=== PATIENT | female | born 1960 | race Caucasian/White ===

== ENCOUNTER 2017-02-07 17:47 | Observation (INO) | payer OTHER ==
[~2017-02-07] VITALS: Ht 162.6 cm; Wt 92.2 kg
[2017-02-07] MEDS ORDERED: ONDANSETRON INJ 2 MG/ML 2 ML VIAL IV STA (18:09)
[2017-02-07] MEDS ORDERED: ASPIRIN 81 MG CHEW PO STA (18:09)
[2017-02-07] MEDS ORDERED: SODIUM CHLORIDE 0.9% 1000ML 1,000 ML IV STA (18:09)
--- NOTE | 2017-02-07 18:20 | DIAGNOSTIC IMAGING REPORT ---
CHEST ONE VIEW PORTABLE HISTORY: 56 years-old Female Chest Pain acute atypical chest pain with nausea COMPARISON: None available TECHNIQUE: Portable AP view of the chest FINDINGS: Cardiomediastinal and hilar silhouettes are within normal limits. No pneumothorax, pleural effusion, focal airspace consolidation or overt pulmonary edema. Bones of the chest are grossly intact. IMPRESSION: No acute cardiopulmonary process. The above report was generated using voice recognition software. It may contain grammatical, syntax or spelling errors. Electronically signed by: Charbel Giron M.D. 02/07/2017 6:18 PM Dictated Date/Time: 02/07/2017 6:18 PM
[2017-02-07] MEDS ORDERED: VENL75CA PO (18:25)
[2017-02-07] MEDS ORDERED: CETI10TA84 PO (18:25)
[2017-02-07 18:33] LABS: BASO % 0.4 %; BASO ABS # 0.04 K/uL (0-0.2); COMPLETE YES; EOS % 1.9 %; HEMATOCRIT 41.8 % (37-47); IG% 0.2 %; LYMPH % 39.6 %; LYMPH ABS # 4.07 K/uL (1.2-3.4); MEAN CELL VOLUME 92.3 fL (80-100); MEAN CORPUSCULAR HEMOGLOBIN 30.7 pg (25-34); MEAN CORPUSCULAR HGB CONC 33.3 g/dl (32-36); MEAN PLATELET VOLUME 11.4 fL (7.4-10.4); MONO % 6.7 %; NEUT % 51.2 %; PLATELET COUNT 258 K/uL (130-400); RED BLOOD COUNT 4.53 M/uL (4.2-5.4); WHITE BLOOD COUNT 10.27 K/uL (4.8-10.8)
[2017-02-07 18:49] LABS: BLOOD UREA NITROGEN 16 mg/dl (7-18); BUN/CREATININE RATIO 23.6 (10-20); CALCIUM 9.5 mg/dl (8.5-10.1); CARBON DIOXIDE 26 mmol/L (21-32); CHLORIDE 106 mmol/L (98-107); CREATININE 0.67 mg/dl (0.60-1.20); GLUCOSE 110 mg/dl (70-99); POTASSIUM 3.5 mmol/L (3.5-5.1); SODIUM 136 mmol/L (136-145)
[2017-02-07 18:54] LABS: CKMB/CK RATIO 0.9 (0-3.0)
[2017-02-07 19:56] LABS: ALKALINE PHOSPHATASE 86 U/L (45-117); ALT/SGPT 26 U/L (12-78); AST/SGOT 17 U/L (15-37); MAGNESIUM 2.3 mg/dl (1.8-2.4)
[2017-02-07] MEDS ORDERED: OPTIRAY 320 IV PRN (20:15)
--- NOTE | 2017-02-07 20:17 | DIAGNOSTIC IMAGING REPORT ---
HEAD WITHOUT CONTRAST (CT) CLINICAL HISTORY: 56 years-old Female with ordaz, RUE numbness. Acute headache TECHNIQUE: Multiple axial CT images of the head were obtained without contrast. A dose lowering technique was utilized adhering to the principles of ALARA. CT DOSE: 537.48 mGy.cm COMPARISON: None. FINDINGS: No acute intracranial hemorrhage, midline shift, intracranial mass, hydrocephalus, territorial ischemia or abnormal extra-axial collection. Calcifications of the falx cerebri and tentorium noted in addition to dural calcifications of the middle cranial fossa. Ill-defined areas of low-attenuation within the periventricular white matter suggests minimal chronic microvascular ischemic changes. The calvarium is intact. The paranasal sinuses, mastoid air cells, and middle ear cavities are clear. IMPRESSION: No acute intracranial abnormality. The above report was generated using voice recognition software. It may contain grammatical, syntax or spelling errors. Electronically signed by: Charbel Giron M.D. 02/07/2017 8:16 PM Dictated Date/Time: 02/07/2017 8:12 PM
--- NOTE | 2017-02-07 20:25 | DIAGNOSTIC IMAGING REPORT ---
(CHEST FOR PE) ANGIO WITH CT DOSE: 391.70 mGy.cm HISTORY: 56 years-old Female presents with acute chest pain and shortness of breath TECHNIQUE: Multiple CTA images of the chest were obtained after the intravenous administration of 91 ml Optiray 320. Coronal and sagittal MIPS were obtained from the axial data set and were submitted for review. A dose lowering technique was utilized adhering to the principles of ALARA. COMPARISON: Chest radiograph 02/07/2017. FINDINGS: CTA: Mild multichamber cardiac enlargement. Thoracic aorta is normal in course and caliber without dissection or aneurysm. The imaged great vessels appear to be patent. The pulmonary arterial tree is opacified to level of the segmental branches. The subsegmental branches are not well-seen secondary to contrast bolus timing. No focal filling defects identified to suggest pulmonary thromboembolic disease. CT CHEST: Thyroid appears mildly atrophic. No pathologically enlarged lymph nodes of the chest are identified. There is no pneumothorax or pleural effusion. Mild dependent bibasilar atelectasis. Ovoid circumscribed solid nodule of the lingula measuring 4 mm as seen on image 120 of series 4. Central airways are patent. No lobar airspace consolidations identified. No acute amount of the imaged upper abdomen. There is an ovoid 1.7 x 0.9 cm lesion of the left adrenal gland which is partially imaged demonstrating macroscopic fat. Soft tissues are unremarkable. Bones appear intact. IMPRESSION: 1. No acute intrathoracic abnormality identified. No acute aortic pathology or evidence of pulmonary thromboembolic disease. 2. 4 mm solid nodule of the lingula is likely benign. 3. Partially imaged 1.7 cm lesion of the left adrenal gland demonstrating macroscopic fat attenuation suggests adrenal myolipoma. Please refer to below summary of Fleischner criteria recommendations for follow-up of incidental CT nodules (Radha Her, Guidelines for management of small pulmonary nodules detected on CT scans: A statement from the Fleischner Society, Radiology 237: [phone].) SOLID NODULES Solitary nodule size: <6 mm * Low risk patients: no follow-up needed * high risk patients: optional CT at 12 months Note: newly detected indeterminate nodule in persons 35 years of age or older. * Low risk patients: minimal or absent history of smoking and/or other known risk factors * high risk patients: history of smoking or of other known risk factors (e.g. first degree relative with lung cancer, or exposure to asbestos, radon, uranium) * if a nodule up to 8 mm is partly solid or is ground glass further follow-up is required after 24 months to exclude possible slow growing adenocarcinoma (CHICHI) The above report was generated using voice recognition software. It may contain grammatical, syntax or spelling errors. Electronically signed by: Charbel Giron M.D. 02/07/2017 8:24 PM Dictated Date/Time: 02/07/2017 8:16 PM
[2017-02-07] MEDS ORDERED: NITROGLYCERIN 0.4 MG SL PER TAB CHARGE SL PRN (21:00)
[2017-02-07] MEDS ORDERED: TRAMADOL HCL 50 MG TAB PO PRN (21:00)
[2017-02-07] MEDS ORDERED: ENOXAPARIN 40 MG/0.4 ML SYR SC SCH (21:00)
[2017-02-07] MEDS ORDERED: LORAZEPAM 2 MG/ML 1 ML VIAL IV PRN (21:00)
[2017-02-07] MEDS ORDERED: PROCHLORPERAZINE INJ 5 MG in SYRINGE 4 ML IV PRN (21:00)
[2017-02-07] MEDS ORDERED: ACETAMINOPHEN 325 MG TAB PO PRN (21:00)
[2017-02-07] MEDS ORDERED: PHARMACIST DISCHARGE MED REC CONSULT PRN (21:00)
[2017-02-07] MEDS ORDERED: IV FLUIDS COMPLETED PRN (21:15)
[2017-02-07 21:43] VITALS: BP 152/94; PULSE 56; TEMP 36.8; O2SAT 100; Ht 162.6 cm; Wt 92.2 kg
[2017-02-07] MEDS ORDERED: NSS + 20MEQ KCL 1000ML 1,000 ML IV ONE (22:00)
--- NOTE | 2017-02-07 22:12 | HISTORY & PHYSICAL EXAMINATION ---
DATE OF ADMISSION: 02/07/2017 PRIMARY CARE PHYSICIAN: Dr. Diana Burt. CHIEF COMPLAINT: Chest tightness. HISTORY OF PRESENT ILLNESS: History obtained from patient and records. Medical history significant for borderline hypertension, hyperlipidemia, skin cancer status post surgery, mood disorder, past tobacco abuse. Patient was traveling from [place], [place] with her daughter by a car to [place] today. A few hours on the road they had a flat tire, had to change. Patient had to get in the car because she was not feeling well, had central achy chest tightness with some shortness of breath. No cough. En route to the [facility] ER, patient noted right upper extremity numbness. No neck pain, currently improving. Transient headache symptoms as well. As per patient, she would have that right-sided numbness whenever her blood pressure is high. Blood pressure at some point at the ER was 157/111 as per patient which is high for her. Patient given aspirin in the ER. Patient currently comfortable. Improving right upper extremity numbness symptoms. MEDICAL HISTORY: As above. MRI a few months ago for vertigo. SURGERIES: Tonsillectomy, hysterectomy, appendectomy, skin cancer surgery. HOME MEDICATIONS: Venlafaxine. ALLERGIES: No known drug allergies. FAMILY HISTORY: Family history of heart disease and stroke. PERSONAL AND SOCIAL HISTORY: Past tobacco abuse. NO chronic intake of alcoholic beverages. Homemaker. REVIEW OF SYSTEMS: As per HPI, all 10 systems reviewed, all other ROS negative. PHYSICAL EXAMINATION: VITAL SIGNS: Blood pressure noted to be 140/90, pulse rate 90, RR 18, temperature 36.3, sats 94 on room air. GENERAL: Noted to be anxious, obese, no respiratory distress, looks younger for stated age. SKIN: Normal color. Warm. HEENT: Manele palpebral conjuctivae. No ptosis. Dry buccal mucosa. NECK: Supple. No tenderness. CHEST: Clear to auscultate. No tenderness. HEART: Regular rate and rhythm. No murmur. ABDOMEN: Soft, nontender. EXTREMITIES: No edema, no tenderness. No gross deformities. NEUROLOGIC: Coherent. No gross focality except for subjective numbness on the right extremity. LABORATORY DATA: Hemoglobin 13.9, hematocrit 41.8, white blood cell count 10.27, platelets noted to be 258. Sodium 136, potassium 3.5, chloride 106, CO2 26, BUN 16, creatinine 0.6, glucose [address] . T[address] normal Normal CT head, no acute pathology. CTA lingular nodule, no PE. EKG as per my interpretation, rate 60, normal sinus rhythm, Q-waves inferior leads. ASSESSMENT AND PLAN: 1. Right upper extremity numbness secondary to transient BP elevation ? TIA Currently improving 2. chest discomfort secondary to anxiety, transient BP elevation 3. borderline hypertension, hyperlipidemia as per patient 4. skin cancer status post surgery 5. past tobacco use. 6. SPN Observation PCU, neuro checks ASA for now for stroke prevention until stroke ruled out. Patient refusing MRI of brain despite being counseled about limits of CT imaging and potential for a bigger stroke if RUE numbness symptoms are indeed from a true CVA missed by an incomplete stroke workup. Follow a.m. troponin, 2D echo RE cp Patient requesting to be discharged in a.m. if rest of workup she consents to is unremarkable. Follow-up outpatient CT chest surveillance study for SPN DVT prophylaxis, Lovenox subQ. Full code. MTDD
--- NOTE | 2017-02-07 23:27 | EMERGENCY ROOM VISIT NOTE ---
History Report prepared by Gerri: Yas Dumont Under the Supervision of: Dr. Ector Hale D.O. First contact with patient: 18:04 Chief Complaint: CARDIAC ASSESSMENT Stated Complaint: NAUSEA, DISORIENTATION, SWEATING History of Present Illness The patient is a 56 year old female who presents to the Emergency Room with complaints of a cardiac assessment today. The patient states that she was having a chill then had chest tightness, shortness of breath, nausea, and diaphoresis. She reports that her chest tightness is gone right now, but is still feeling nauseous. The patient also reports becoming disoriented and could not recall the conversation that she was having with her . The patient reports a history of hypertension and hyperlipidemia, but denies a history of diabetes and heart disease. She reports a family history of heart attacks. The patient denies a history of blood clots and states that she is not on blood thinners. The patient denies recent travel and surgeries. She states that she used to be a smoker years ago. Source of History: patient Onset: today Position: chest Quality: other (cardiac assessment ) Timing: intermittent Associated Symptoms: + chills, + diaphoresis, + chest pain (chest tightness) , + SOB, + nausea Note: additional symptoms: became disoriented, could not recall conversations Review of Systems See HPI for pertinent positives & negatives. A total of 10 systems reviewed and were otherwise negative. Past Medical & Surgical Medical Problems: (1) Chest pain (2) Chest tightness (3) Hyperlipidemia (4) Hypertension (5) Numbness and tingling of right upper extremity Family History FH: heart attack Social History Smoking Status: Former Smoker Marital Status: Current/Historical Medications Scheduled Cetirizine (Zyrtec), 10 MG PO DAILY Venlafaxine Hcl (Effexor Xr), 75 MG PO DAILY Allergies Coded Allergies: No Known Allergies (Unverified , 02/07/17) Physical Exam Vital Signs Date Time Temp Pulse Resp B/P (MAP) Pulse Ox O2 Delivery O2 Flow Rate FiO2 02/07/17 18:13 94 Room Air 02/07/17 18:08 72 02/07/17 17:54 36.3 71 18 149/87 94 Room Air Physical Exam GENERAL: Sitting up in bed, alert, anxious appearing, well nourished, no distress, non-toxic, talking in full sentences EYE EXAM: normal conjunctiva. OROPHARYNX: no exudate, no erythema, lips, buccal mucosa, and tongue normal and mucous membranes are moist NECK: supple, no nuchal rigidity, no adenopathy, non-tender LUNGS: Clear to auscultation. Normal chest wall mechanics HEART: no murmurs, S1 normal and S2 normal ABDOMEN: abdomen soft, non-tender, normo-active bowel sounds, no masses, no rebound or guarding. BACK: Back is symmetrical on inspection and there is no deformity, no midline tenderness, no CVA tenderness. SKIN: no rashes and no bruising UPPER EXTREMITIES: upper extremities are grossly normal. Radial pulses are equal bilaterally. LOWER EXTREMITIES: No pitting edema.Calves are equal bilaterally. NEURO EXAM: Normal sensorium, cranial nerves II-XII grossly intact, normal speech, no gross weakness of arms, no gross weakness of legs. Medical Decision & Procedures ER Provider Diagnostic Interpretation: Radiology results as stated below per my review and the radiologist's interpretation: CHEST ONE VIEW PORTABLE HISTORY: 56 years-old Female Chest Pain acute atypical chest pain with nausea COMPARISON: None available TECHNIQUE: Portable AP view of the chest FINDINGS: Cardiomediastinal and hilar silhouettes are within normal limits. No pneumothorax, pleural effusion, focal airspace consolidation or overt pulmonary edema. Bones of the chest are grossly intact. IMPRESSION: No acute cardiopulmonary process. The above report was generated using voice recognition software. It may contain grammatical, syntax or spelling errors. Electronically signed by: hCarbel Giron M.D. 02/07/2017 6:18 PM Dictated Date/Time: 02/07/2017 6:18 PM Laboratory Results 02/07/17 18:09 Red Blood Count 4.53, Mean Corpuscular Volume 92.3, Mean Corpuscular Hemoglobin 30.7, Mean Corpuscular Hemoglobin Concent 33.3, Mean Platelet Volume 11.4, Neutrophils (%) (Auto) 51.2, Lymphocytes (%) (Auto) 39.6, Monocytes (%) (Auto) 6.7, Eosinophils (%) (Auto) 1.9, Basophils (%) (Auto) 0.4, Neutrophils # (Auto) 5.26, Lymphocytes # (Auto) 4.07, Monocytes # (Auto) 0.69, Eosinophils # (Auto) 0.19, Basophils # (Auto) 0.04 02/07/17 18:09 Test 02/07/17 18:09 02/07/17 20:50 White Blood Count 10.27 K/uL (4.8-10.8) Red Blood Count 4.53 M/uL (4.2-5.4) Hemoglobin 13.9 g/dL (12.0-16.0) Hematocrit 41.8 % (37-47) Mean Corpuscular Volume 92.3 fL (80-100) Mean Corpuscular Hemoglobin 30.7 pg (25-34) Mean Corpuscular Hemoglobin Concent 33.3 g/dl (32-36) Platelet Count 258 K/uL (130-400) Mean Platelet Volume 11.4 fL (7.4-10.4) Neutrophils (%) (Auto) 51.2 % Lymphocytes (%) (Auto) 39.6 % Monocytes (%) (Auto) 6.7 % Eosinophils (%) (Auto) 1.9 % Basophils (%) (Auto) 0.4 % Neutrophils # (Auto) 5.26 K/uL (1.4-6.5) Lymphocytes # (Auto) 4.07 K/uL (1.2-3.4) Monocytes # (Auto) 0.69 K/uL (0.11-0.59) Eosinophils # (Auto) 0.19 K/uL (0-0.5) Basophils # (Auto) 0.04 K/uL (0-0.2) RDW Standard Deviation 48.2 fL (36.4-46.3) RDW Coefficient of Variation 14.3 % (11.5-14.5) Immature Granulocyte % (Auto) 0.2 % Immature Granulocyte # (Auto) 0.02 K/uL (0.00-0.02) Activated Partial Thromboplast Time 26.0 SECONDS (21.0-31.0) Partial Thromboplastin Ratio 1.0 Anion Gap 4.0 mmol/L (3-11) Est Creatinine Clear Calc Drug Dose 100.4 ml/min Estimated GFR () 112.3 Estimated GFR (Non- 96.9 BUN/Creatinine Ratio 23.6 (10-20) Calcium Level 9.5 mg/dl (8.5-10.1) Magnesium Level 2.3 mg/dl (1.8-2.4) Total Bilirubin 0.2 mg/dl (0.2-1) Direct Bilirubin < 0.1 mg/dl (0-0.2) Aspartate Amino Transf (AST/SGOT) 17 U/L (15-37) Alanine Aminotransferase (ALT/SGPT) 26 U/L (12-78) Alkaline Phosphatase 86 U/L (45-117) Total Creatine Kinase 149 U/L (26-192) Creatine Kinase MB 1.3 ng/ml (0.5-3.6) Creatine Kinase MB Ratio 0.9 (0-3.0) Total Protein 8.0 gm/dl (6.4-8.2) Albumin 4.1 gm/dl (3.4-5.0) Lipase 182 U/L (73-393) Troponin I < 0.015 ng/ml (0-0.045) Laboratory results per my review. Medications Administered Medications (Trade) Dose Ordered Sig/Bianca Route Start Time Stop Time Status Last Admin Dose Admin Sodium Chloride 1,000 ml @ 999 mls/hr Q1H1M STAT IV 02/07/17 18:09 02/07/17 19:09 DC 02/07/17 18:33 999 MLS/HR Ondansetron HCl (Zofran Inj) 4 mg NOW STAT IV 02/07/17 18:09 02/07/17 18:10 DC 02/07/17 18:33 4 MG Aspirin (Aspirin Chew) 324 mg NOW STAT PO 02/07/17 18:09 02/07/17 18:10 DC 02/07/17 18:33 324 MG ECG Indication: chest pain Rate (beats per minute): 62 Rhythm: sinus rhythm Findings: ST elevation (Lateral), other ED Course ED COURSE: Vital signs were reviewed and showed normal vitals. The patients medical record was reviewed The above diagnostic studies were performed and reviewed. ED treatments and interventions as stated above. 1805: The patient was evaluated in room B2. A complete history and physical examination was performed. 1808: Ordered Aspirin 324 mg PO, Zofran Inj 4 mg IV, Sodium Chloride 1,000 ml @ 999 mls/hr IV. 1924: I reviewed the patient's case with Dr. Norman. Dr. Norman states that he does not believe the patient's chest pain is ischemic, but believes it is more consistent with endocarditis. Dr. Norman recommends an echocardiogram in the morning. 1926: Upon reevaluation, the patient is resting. I discussed the findings and the treatment plan with the patient. She expresses agreement and understanding. [facility] She will be evaluated for further management. Medical Decision Differential diagnoses includes but is not limited to acute coronary syndrome, myocardial infarction, pericarditis, pulmonary embolus, aortic dissection, pneumonia, pneumothorax, musculoskeletal, shingles, esophageal. Patient is a 56-year-old female that presents to ER for chest pain and shortness of breath and nausea associated with diaphoresis. History of hypertension and hyperlipidemia. Previous history of family MRIs and a previous smoker. Her chest pain upon presentation is completely resolved. I did give her aspirin. Initial EKG was nondiagnostic. I did repeat this EKG as to the faint elevations. On repeat it appears that the ST segment elevations is diffuse and has worsened. Patient is completely asymptomatic at this time. Consult to cardiology. They review the EKGs. My initial question was could this be a pericarditis provided history of present illness and exam is not consistent. Do not feel this is ischemic as she is completely pain free without symptoms. Cardiology agrees with admission and echo in the a.m. No need for emergent cath. Patient was updated at bedside admitted to internal medicine. Medication Reconcilliation Current Medication List: was personally reviewed by me Blood Pressure Screening Patient's blood pressure: Normal blood pressure Consults Time Called: 1899 Consulting Physician: Dr. Norman- Cardiovascular disease Returned Call: 1924 I reviewed the patient's case with Dr. Norman. Dr. Norman states that he does not believe the patient's chest pain is ischemic, but believes it is more consistent with endocarditis. Dr. Norman recommends an echocardiogram in the morning. Additional Consults: Time Called: 1901 Consulted Physician: Dr. Bowman-[facility] Returned Call: 1926 Additional Comments: I reviewed the patient's case with Dr. Bowman. He will evaluate the patient for further management. Impression Primary Impression: Chest pain Additional Impression: Acute electrocardiogram changes Scribe Attestation The scribe's documentation has been prepared under my direction and personally reviewed by me in its entirety. I confirm that the note above accurately reflects all work, treatment, procedures, and medical decision making performed by me. Departure Information Dispostion Being Evaluated By Hospitalist Referrals Diana Burt D.O. (PCP) Patient Instructions My [facility] Problem Qualifiers Primary Impression: Chest pain Chest pain type: unspecified Qualified Codes: R07.9 - Chest pain, unspecified
[2017-02-08 00:20] VITALS: BP 139/87; PULSE 71; TEMP 36.5; O2SAT 98
[2017-02-08 03:14] VITALS: BP 143/72; PULSE 72; TEMP 36.7; O2SAT 96
[2017-02-08] MEDS ORDERED: INFLUENZA VIRUS QUAD VACCINE 0.5 ML SYR IM. ONE (04:00)
[2017-02-08] MEDS ORDERED: INFLUENZA ADMINISTRATION CHARGE ONE (04:00)
[2017-02-08 06:11] LABS: BASO % 0.4 %; BASO ABS # 0.04 K/uL (0-0.2); COMPLETE YES; EOS % 1.4 %; HEMATOCRIT 37.8 % (37-47); IG% 0.3 %; LYMPH % 46.4 %; LYMPH ABS # 4.36 K/uL (1.2-3.4); MEAN CELL VOLUME 93.3 fL (80-100); MEAN CORPUSCULAR HEMOGLOBIN 30.4 pg (25-34); MEAN CORPUSCULAR HGB CONC 32.5 g/dl (32-36); MEAN PLATELET VOLUME 11.5 fL (7.4-10.4); MONO % 7.1 %; NEUT % 44.4 %; PLATELET COUNT 233 K/uL (130-400); RED BLOOD COUNT 4.05 M/uL (4.2-5.4); WHITE BLOOD COUNT 9.39 K/uL (4.8-10.8)
[2017-02-08 06:38] LABS: CHOLESTEROL 156 mg/dl (0-200); CHOLESTEROL/HDL RATIO 2.5; HDL CHOLESTEROL 63 mg/dl; LDL CHOLESTEROL CALCULATED 60 mg/dl; TRIGLYCERIDES 165 mg/dl (0-150); VERY LOW DENSITY LIPOPROT CALC 33 mg/dl
[2017-02-08 08:00] VITALS: BP 107/68; PULSE 70; TEMP 36.6; O2SAT 96
[2017-02-08] MEDS ORDERED: CETIRIZINE HCL 10 MG TAB PO SCH (09:00)
[2017-02-08] MEDS ORDERED: ASPIRIN 325 MG ECTAB PO SCH (09:00)
[2017-02-08] MEDS ORDERED: VENLAFAXINE HCL XR 75 MG CAPXR PO SCH (09:00)
[2017-02-08 11:06] VITALS: BP 130/82; PULSE 74; TEMP 36.5; O2SAT 97
--- NOTE | 2017-02-08 11:55 | ECHOCARDIOGRAM REPORT ---
*NOTICE TO RECEIVING [employer] This information is strictly Confidential and protected under [place] law. [place] law prohibits you from making any further disclosure of this information unless further disclosure is expressly permitted by the written consent of the person to whom it pertains or is authorized by law. A general authorization for the release of medical or other information is not sufficient for this purpose. Hospital accepts no responsibility if the information is made available to any other person, INCLUDING THE PATIENT. Interpretation Summary * Name: DILAN DEGROOT Study Date: 02/08/2017 08:13 AM BP: 143/72 mmHg * Patient Location: .2T\S\S230\S\1 HR: 72 * : 1960 (M/d/yyyy) Gender: Female Height: 64 in * Age: 56 yrs Ethnicity: [place] Weight: 202 lb * Ordering Physician: Joaquim Bowman * Referring Physician: Self, Referred * Performed By: Rita Baugh RCS * * Reason For Study: Chest Pain * BSA: 2.0 m2 * -- Conclusions -- * Normal LV chamber size and wall thickness. * Normal LV systolic function, EF 60-65%. * No segmental left ventricular wall motion abnormalities are noted. * Grade II diastolic dysfunction. * No significant valvular pathology. Procedure Details * A complete two-dimensional transthoracic echocardiogram was performed (2D, M-mode, Doppler and color flow Doppler). Left Ventricle * The left ventricle is normal in size. * There is normal left ventricular wall thickness. * Left ventricular systolic function is normal. * No segmental left ventricular wall motion abnormalities are noted. * Ejection Fraction = 60-65%. * The left ventricular wall motion is normal. Right Ventricle * The right ventricular cavity size is normal (basal dimension <4.2 cm in right ventricular apical 4-chamber view). * The right ventricular systolic function is normal as assessed by tricuspid annular plane systolic excursion (TAPSE) (normal >1.5 cm). Atria * The left atrium is mildly dilated. * Right atrial size is normal. * No ASD detected; PFO is not assessed. Mitral Valve * The mitral valve is normal in structure and function. Tricuspid Valve * The tricuspid valve is normal in structure and function. Aortic Valve * The aortic valve is not well visualized. * No hemodynamically significant valvular aortic stenosis. * There is no significant aortic regurgitation. Pulmonic Valve * The pulmonary valve is not well seen, but the Doppler examination is normal without significant regurgitation or stenosis. Great Vessels * The aortic root and proximal ascending aorta are normal sized. Pericardium/Pleural * There is no pericardial effusion. Left Ventricular Diastolic Function * Diastolic dysfunction, Grade II (pseudonormalization pattern). MMode 2D Measurements and Calculations IVSd 0.94 cm IVSs 1.2 cm LVIDd 4.1 cm LVIDs 3.3 cm LVPWd 10 cm LVPWs 1.3 cm IVS/LVPW 0.94 FS 17.7 % EDV(Teich) 72.2 ml ESV(Teich) 45.3 ml EF(Teich) 37.2 % EDV(cubed) 66.6 ml ESV(cubed) 37.1 ml EF(cubed) 44.2 % % IVS thick 23.0 % % LVPW thick 32.8 % LV mass(C)d 124.3 grams LV mass(C)dI 63.3 grams/m\S\2 LV mass(C)s 133.7 grams LV mass(C)sI 68.1 grams/m\S\2 SV(Teich) 26.9 ml SI(Teich) 13.7 ml/m\S\2 SV(cubed) 29.4 ml SI(cubed) 15.0 ml/m\S\2 Ao root diam 3.3 cm Ao root area 8.3 cm\S\2 ACS 1.5 cm LA dimension 4.2 cm asc Aorta Diam 3.2 cm LA/Ao 1.3 EDV(MOD-sp4) 135.4 ml ESV(MOD-sp4) 55.9 ml EF(MOD-sp4) 58.8 % EDV(MOD-sp2) 127.7 ml ESV(MOD-sp2) 46.8 ml EF(MOD-sp2) 63.4 % SV(MOD-sp4) 79.6 ml SI(MOD-sp4) 40.5 ml/m\S\2 SV(MOD-sp2) 80.9 ml SI(MOD-sp2) 41.2 ml/m\S\2 Doppler Measurements and Calculations MV E max jessie 92.5 cm/sec MV A max jessie 82.2 cm/sec MV E/A 1.1 MV dec time 0.24 sec Ao V2 max 134.6 cm/sec Ao max PG 7.2 mmHg Ao max PG (full) 1.2 mmHg LV V1 max PG 6.0 mmHg LV V1 max 122.6 cm/sec PA V2 max 85.0 cm/sec PA max PG 2.9 mmHg TR max jessie 204.7 cm/sec
--- NOTE | 2017-02-08 12:44 | Progress Note ---
Internal Med Progress Note Date of Service: Feb 08, 2017. Provider Documentation: SUBJECTIVE: The patient was seen and examined Admitted with atypical Chest pain and right UE numbness Noted to have High BP on Admission No more symptoms and BP settled down OBJECTIVE: Vital Signs-as noted below Exam: General-No distress at rest Eyes-normal ENT-normal Neck-supple Lungs-Clear to ausucltate bilaterally Heart-regular,no murmur appreciated Abdomen-Benign,no masses,bowel sound present Extremities-no edema Neuro-AAOx3 No focal neuro deficit Lab data as noted below. ASSESSMENT & PLAN: Right upper extremity numbness secondary to transient BP elevation May have TIA but doubt any stroke CT of the Head is negative and symptoms resolved US carotid to R/O Any stenosis Refused to have MRI of the Head Chest discomfort secondary to anxiety Serial Cardiac enzymes are negative for any ACS ECHO:: Normal LV chamber size and wall thickness. * Normal LV systolic function, EF 60-65%. * No segmental left ventricular wall motion abnormalities are noted. * Grade II diastolic dysfunction. * No significant valvular pathology. Will start Low dose Aspirin Advise OP Stress test Abnormal CT of the Chest: 1. No acute intrathoracic abnormality identified. No acute aortic pathology or evidence of pulmonary thromboembolic disease. 2. 4 mm solid nodule of the lingula is likely benign. 3. Partially imaged 1.7 cm lesion of the left adrenal gland demonstrating macroscopic fat attenuation suggests adrenal myolipoma. Please refer to below summary of Fleischner criteria recommendations for follow-up of incidental CT nodules (Radha Her, Guidelines for management of small pulmonary nodules detected on CT scans: A statement from the Fleischner Society, Radiology 237: [id number].) Needs follow up as an OP Borderline hypertension, hyperlipidemia as per patient Normal now Advised to have monitor BP atPCPs office Likely to need Medications Skin cancer status post surgery Past tobacco use. DVT prophylaxis, Lovenox subQ. Full code. DISPOSITION Home today Vital Signs: Date Time Temp Pulse Resp B/P (MAP) Pulse Ox O2 Delivery O2 Flow Rate FiO2 02/08/17 15:34 36.5 74 20 97 Room Air 02/08/17 12:00 Room Air 02/08/17 11:06 36.5 74 20 130/82 (98) 97 Room Air 02/08/17 08:00 36.6 70 16 107/68 (81) 96 Room Air 02/08/17 08:00 Room Air 02/08/17 04:00 Room Air 02/08/17 03:14 36.7 72 18 143/72 (95) 96 Room Air 02/08/17 00:20 36.5 71 18 139/87 (104) 98 Room Air 02/07/17 23:59 Room Air 02/07/17 21:43 36.8 56 18 152/94 100 Room Air 02/07/17 20:53 68 22 130/75 99 Room Air 02/07/17 18:13 94 Room Air 02/07/17 18:08 72 02/07/17 17:54 36.3 71 18 149/87 94 Room Air Lab Results: Results Past 24 Hours Test 02/07/17 18:09 02/07/17 20:50 02/08/17 05:27 Range/Units White Blood Count 10.27 9.39 4.8-10.8 K/uL Red Blood Count 4.53 4.05 4.2-5.4 M/uL Hemoglobin 13.9 12.3 12.0-16.0 g/dL Hematocrit 41.8 37.8 37-47 % Mean Corpuscular Volume 92.3 93.3 80-100 fL Mean Corpuscular Hemoglobin 30.7 30.4 25-34 pg Mean Corpuscular Hemoglobin Concent 33.3 32.5 32-36 g/dl Platelet Count 258 233 130-400 K/uL Mean Platelet Volume 11.4 11.5 7.4-10.4 fL Neutrophils (%) (Auto) 51.2 44.4 % Lymphocytes (%) (Auto) 39.6 46.4 % Monocytes (%) (Auto) 6.7 7.1 % Eosinophils (%) (Auto) 1.9 1.4 % Basophils (%) (Auto) 0.4 0.4 % Neutrophils # (Auto) 5.26 4.16 1.4-6.5 K/uL Lymphocytes # (Auto) 4.07 4.36 1.2-3.4 K/uL Monocytes # (Auto) 0.69 0.67 0.11-0.59 K/uL Eosinophils # (Auto) 0.19 0.13 0-0.5 K/uL Basophils # (Auto) 0.04 0.04 0-0.2 K/uL RDW Standard Deviation 48.2 49.8 36.4-46.3 fL RDW Coefficient of Variation 14.3 14.5 11.5-14.5 % Immature Granulocyte % (Auto) 0.2 0.3 % Immature Granulocyte # (Auto) 0.02 0.03 0.00-0.02 K/uL Activated Partial Thromboplast Time 26.0 21.0-31.0 SECONDS Partial Thromboplastin Ratio 1.0 Sodium Level 136 136-145 mmol/L Potassium Level 3.5 3.5-5.1 mmol/L Chloride Level 106 98-107 mmol/L Carbon Dioxide Level 26 21-32 mmol/L Anion Gap 4.0 3-11 mmol/L Blood Urea Nitrogen 16 7-18 mg/dl Creatinine 0.67 0.60-1.20 mg/dl Est Creatinine Clear Calc Drug Dose 100.4 ml/min Estimated GFR () 112.3 Estimated GFR (Non- 96.9 BUN/Creatinine Ratio 23.6 10-20 Random Glucose 110 70-99 mg/dl Calcium Level 9.5 8.5-10.1 mg/dl Magnesium Level 2.3 1.8-2.4 mg/dl Total Bilirubin 0.2 0.2-1 mg/dl Direct Bilirubin < 0.1 0-0.2 mg/dl Aspartate Amino Transf (AST/SGOT) 17 15-37 U/L Alanine Aminotransferase (ALT/SGPT) 26 12-78 U/L Alkaline Phosphatase 86 45-117 U/L Total Creatine Kinase 149 26-192 U/L Creatine Kinase MB 1.3 0.5-3.6 ng/ml Creatine Kinase MB Ratio 0.9 0-3.0 Troponin I < 0.015 < 0.015 < 0.015 0-0.045 ng/ml Total Protein 8.0 6.4-8.2 gm/dl Albumin 4.1 3.4-5.0 gm/dl Lipase 182 73-393 U/L Hepatitis C Antibody Screen NEG NEG Triglycerides Level 165 0-150 mg/dl Cholesterol Level 156 0-200 mg/dl HDL Cholesterol 63 mg/dl LDL Cholesterol, Calculated 60 mg/dl VLDL Cholesterol, Calculated 33 mg/dl Cholesterol/HDL Ratio 2.5
[2017-02-08] MEDS ORDERED: ASPEC81 PO (15:15)
--- NOTE | 2017-02-08 15:17 | Discharge Instructions ---
Discharge Instructions Date of Service Feb 08, 2017. Admission Reason for Admission: Chest Pain, Numbness And Tingling Of Right Upper Discharge Discharge Diagnosis / Problem: Atypical CP-No ACS,HTN-resolved,transient right UE numbness-resolved Discharge Goals Goal(s): Prevent Disease Progression Activity Recommendations Activity Limitations: resume your previous activity . Instructions / Follow-Up Instructions / Follow-Up Please make an appointment with your PCP in 1 week.Should Have a stress test and may need medications to control HTN Has Small Pulmonary Nodule-needs follow up Current Hospital Diet Patient's current hospital diet: AHA Diet (Heart Healthy) Discharge Diet Recommended Diet: AHA Diet (Heart Healthy) Pending Studies Studies pending at discharge: no Laboratory Results Lipid Panel Test 02/08/17 05:27 Range/Units Triglycerides Level 165 H 0-150 mg/dl Cholesterol Level 156 0-200 mg/dl HDL Cholesterol 63 mg/dl Cholesterol/HDL Ratio 2.5 LDL Cholesterol, Calculated 60 mg/dl Medical Emergencies . Who to Call and When: Medical Emergencies: If at any time you feel your situation is an emergency, please call 911 immediately. . Non-Emergent Contact Non-Emergency issues call your: Primary Care Provider . Past History Medical & Surgical History: (1) Chest tightness (2) Numbness and tingling of right upper extremity (3) Chest pain (4) Hyperlipidemia (5) Hypertension . "Provider Documentation" section prepared by Clovis Flores. . VTE Core Measure Inpt VTE Proph given/why not?: Enoxaparin (Lovenox)SQ
[2017-02-08 15:26] VITALS: BP 149/81; PULSE 66; TEMP 36.7; O2SAT 96
[2017-02-08 15:34] VITALS: BP 130/82; PULSE 74; TEMP 36.5; O2SAT 97
--- NOTE | 2017-02-08 15:34 | DIAGNOSTIC IMAGING REPORT ---
CAROTID DOPPLER NECK ART CLINICAL HISTORY: 56 years-old Female with r/o stenosis. Acute atypical chest pain with numbness and tingling of the right upper extremity COMPARISON: None available TECHNIQUE: Multiple real time sonographic images of the carotid bifurcations were obtained assessing stephenson scale, color Doppler and spectral wave form appearance FINDINGS: RIGHT INTERNAL CAROTID: The peak systolic velocity measured 80 cm/sec. The end diastolic velocity measured 31 cm/sec. The ICA to CCA ratio measured 1.0 which correlates with a stenosis of 0-50%. LEFT INTERNAL CAROTID: The peak systolic velocity measured 66 cm/sec. The end diastolic velocity measured 31 cm/sec. The ICA to CCA ratio measured 0.6 which correlates with a stenosis of 0-50%. There is normal antegrade vertebral flow bilaterally. IMPRESSION: 1. No hemodynamically significant stenosis or significant atherosclerotic plaquing. 2. Normal antegrade vertebral flow bilaterally. The above report was generated using voice recognition software. It may contain grammatical, syntax or spelling errors. Electronically signed by: Charbel Giron M.D. 02/08/2017 3:33 PM Dictated Date/Time: 02/08/2017 3:30 PM
--- NOTE | 2017-02-09 07:41 | Discharge Summary ---
Discharge Summary Date of Service Feb 09, 2017. Discharge Summary Admission Date: Feb 07, 2017 at 20:51 Discharge Date: Feb 08, 2017 Discharge Disposition: Home Principal Diagnosis: Atypical CP-No ACS,HTN-resolved,transient right UE numbness-resolved Secondary Diagnoses/Problems: Please see H&P and Hospital Progress note Pending Studies/Follow-Up: Advised to make an appointment with the PCP in 1 week Medication Reconciliation New Medications: Aspirin (Aspirin EC Low Dose) 81 Mg Ectab 81 MG PO DAILY, #30 Continued Medications: Cetirizine (Zyrtec) 10 Mg Tab 10 MG PO DAILY Venlafaxine Hcl (Effexor Xr) 75 Mg Cap 75 MG PO DAILY Admission Information HPI (per Admitting provider): DATE OF ADMISSION: 02/07/2017 PRIMARY CARE PHYSICIAN: Dr. Diana Burt. CHIEF COMPLAINT: Chest tightness. HISTORY OF PRESENT ILLNESS: History obtained from patient and records. Medical history significant for borderline hypertension, hyperlipidemia, skin cancer status post surgery, mood disorder, past tobacco abuse. Patient was traveling from [place], [place] with her daughter by a car to [place] today. A few hours on the road they had a flat tire, had to change. Patient had to get in the car because she was not feeling well, had central achy chest tightness with some shortness of breath. No cough. En route to the [facility] ER, patient noted right upper extremity numbness. No neck pain, currently improving. Transient headache symptoms as well. As per patient, she would have that right-sided numbness whenever her blood pressure is high. Blood pressure at some point at the ER was 157/111 as per patient which is high for her. Patient given aspirin in the ER. Patient currently comfortable. Improving right upper extremity numbness symptoms. MEDICAL HISTORY: As above. MRI a few months ago for vertigo. SURGERIES: Tonsillectomy, hysterectomy, appendectomy, skin cancer surgery. HOME MEDICATIONS: Venlafaxine. ALLERGIES: No known drug allergies. FAMILY HISTORY: Family history of heart disease and stroke. PERSONAL AND SOCIAL HISTORY: Past tobacco abuse. NO chronic intake of alcoholic beverages. Homemaker. REVIEW OF SYSTEMS: As per HPI, all 10 systems reviewed, all other ROS negative. PHYSICAL EXAMINATION: VITAL SIGNS: Blood pressure noted to be 140/90, pulse rate 90, RR 18, temperature 36.3, sats 94 on room air. GENERAL: Noted to be anxious, obese, no respiratory distress, looks younger for stated age. SKIN: Normal color. Warm. HEENT: [place] palpebral conjuctivae. No ptosis. Dry buccal mucosa. NECK: Supple. No tenderness. CHEST: Clear to auscultate. No tenderness. HEART: Regular rate and rhythm. No murmur. ABDOMEN: Soft, nontender. EXTREMITIES: No edema, no tenderness. No gross deformities. NEUROLOGIC: Coherent. No gross focality except for subjective numbness on the right extremity. LABORATORY DATA: Hemoglobin 13.9, hematocrit 41.8, white blood cell count 10.27, platelets noted to be 258. Sodium 136, potassium 3.5, chloride 106, CO2 26, BUN 16, creatinine 0.6, glucose 110 . Troponin normal Normal CT head, no acute pathology. CTA lingular nodule, no PE. EKG as per my interpretation, rate 60, normal sinus rhythm, Q-waves inferior leads. ASSESSMENT AND PLAN: 1. Right upper extremity numbness secondary to transient BP elevation ? TIA Currently improving 2. chest discomfort secondary to anxiety, transient BP elevation 3. borderline hypertension, hyperlipidemia as per patient 4. skin cancer status post surgery 5. past tobacco use. 6. SPN Observation PCU, neuro checks ASA for now for stroke prevention until stroke ruled out. Patient refusing MRI of brain despite being counseled about limits of CT imaging and potential for a bigger stroke if RUE numbness symptoms are indeed from a true CVA missed by an incomplete stroke workup. Follow a.m. troponin, 2D echo RE cp Patient requesting to be discharged in a.m. if rest of workup she consents to is unremarkable. Follow-up outpatient CT chest surveillance study for SPN DVT prophylaxis, Lovenox subQ. Full code. Hospital Course Right upper extremity numbness secondary to transient BP elevation May have TIA but doubt any stroke CT of the Head is negative and symptoms resolved US carotid to R/O Any stenosis Refused to have MRI of the Head Chest discomfort secondary to anxiety Serial Cardiac enzymes are negative for any ACS ECHO:: Normal LV chamber size and wall thickness. * Normal LV systolic function, EF 60-65%. * No segmental left ventricular wall motion abnormalities are noted. * Grade II diastolic dysfunction. * No significant valvular pathology. Will start Low dose Aspirin Advise OP Stress test Abnormal CT of the Chest: 1. No acute intrathoracic abnormality identified. No acute aortic pathology or evidence of pulmonary thromboembolic disease. 2. 4 mm solid nodule of the lingula is likely benign. 3. Partially imaged 1.7 cm lesion of the left adrenal gland demonstrating macroscopic fat attenuation suggests adrenal myolipoma. Please refer to below summary of Fleischner criteria recommendations for follow-up of incidental CT nodules (Radha Her, Guidelines for management of small pulmonary nodules detected on CT scans: A statement from the Fleischner Society, Radiology 237: [phone].) Needs follow up as an OP Borderline hypertension, hyperlipidemia as per patient Normal now Advised to have monitor BP atPCPs office Likely to need Medications Skin cancer status post surgery Past tobacco use. DVT prophylaxis, Lovenox subQ. Full code. DISPOSITION Home today Total time spent on discharge = 35 minutes This includes examination of the patient, discharge planning, medication reconciliation, and communication with other providers. Discharge Instructions Date of Service Feb 08, 2017. Admission Reason for Admission: Chest Pain, Numbness And Tingling Of Right Upper Discharge Discharge Diagnosis / Problem: Atypical CP-No ACS,HTN-resolved,transient right UE numbness-resolved Discharge Goals Goal(s): Prevent Disease Progression Activity Recommendations Activity Limitations: resume your previous activity . Instructions / Follow-Up Instructions / Follow-Up Please make an appointment with your PCP in 1 week.Should Have a stress test and may need medications to control HTN Has Small Pulmonary Nodule-needs follow up Current Hospital Diet Patient's current hospital diet: AHA Diet (Heart Healthy) Discharge Diet Recommended Diet: AHA Diet (Heart Healthy) Pending Studies Studies pending at discharge: no Laboratory Results Lipid Panel Test 02/08/17 05:27 Range/Units Triglycerides Level 165 H 0-150 mg/dl Cholesterol Level 156 0-200 mg/dl HDL Cholesterol 63 mg/dl Cholesterol/HDL Ratio 2.5 LDL Cholesterol, Calculated 60 mg/dl Medical Emergencies . Who to Call and When: Medical Emergencies: If at any time you feel your situation is an emergency, please call 911 immediately. . Non-Emergent Contact Non-Emergency issues call your: Primary Care Provider . Past History Medical & Surgical History: (1) Chest tightness (2) Numbness and tingling of right upper extremity (3) Chest pain (4) Hyperlipidemia (5) Hypertension . "Provider Documentation" section prepared by Clovis Flores. . VTE Core Measure Inpt VTE Proph given/why not?: Enoxaparin (Lovenox)SQ <Electronically signed by Clovis Flores M.D.> Additional Copies To Diana Burt D.O.
[2017-02-09] MEDS ORDERED: ASPIRIN 81 MG ECTAB PO SCH (09:00)
== END 2017-02-08 18:50 | disposition home or self-care (01) ==
LOC: C.EDB 17:48 → ENRESERV 20:38 → C.2T 20:51
PROVIDERS: ADMIT Internal Medicine; ATTEND Internal Medicine
DX: R07.89 Other chest pain (principal); I10 Essential (primary) hypertension; E78.5 Hyperlipidemia, unspecified; Z87.891 Personal history of nicotine dependence; Z79.82 Long term (current) use of aspirin; Z79.899 Other long term (current) drug therapy